=== PATIENT | female | born 1985 | race Caucasian/White ===

== ENCOUNTER 2023-04-16 14:04 | Emergency (ER) | payer OTHER ==
[2023-04-16 14:47] VITALS: PULSE 78; TEMP 98.1
[2023-04-16] MEDS ORDERED: ORPHENADRINE 30 MG/ML 2 ML VIAL IVP STA (14:50)
[2023-04-16] MEDS ORDERED: KETOROLAC 15 MG/ML 1 ML VIAL IVP STA (14:50)
[2023-04-16] MEDS ORDERED: DEXAMETHASONE SOD PHOSPHATE 10 MG/ML 1 ML VIAL IVP STA (14:50)
--- NOTE | 2023-04-16 15:13 | ED ---
Neck Injury/Pain HPI - General Chief Complaint: Neck Pain/Injury Stated Complaint: Neck pain, blurry vision Time Seen by Provider: 04/16/23 14:31 Source: patient, RN notes reviewed Mode of arrival: ambulatory Limitations: no limitations - History of Present Illness Initial Comments: This is a 37-year-old female who presents to the emergency department for neck pain. States that yesterday she went to bend over and pick something up, and developed severe pain to the base of her skull. She has since been in excruciating pain and is unable to turn her head whatsoever. The pain does not go down the neck or into any of the extremities. States that it remains at the base of the skull. Believes that she is starting to get blurry vision as well. MD Complaint: neck pain - Related Data Previous Rx's Medication Instructions Recorded HYDROcodone/APAP 5-325MG [Sp[place] 1 tab PO Q6HR PRN 3 Days #12 tab 04/16/23 5-325] methocarbamoL [Robaxin-750] 1,500 mg PO TID PRN #30 tab 04/16/23 predniSONE 50 mg PO DAILY 5 Days #5 tab 04/16/23 Allergies Allergy/AdvReac Type Severity Reaction Status Date / Time codeine Allergy Swelling Verified 04/16/23 14:27 Review of Systems ROS Statement: Those systems with pertinent positive or pertinent negative responses have been documented in the HPI. ROS Other: All systems not noted in ROS Statement are negative. Past Medical History Past Medical History: Seizure Disorder Past Surgical History: Orthopedic Surgery Smoking Status: Current every day smoker General Exam Limitations: no limitations General appearance: alert, in distress Head exam: Present: atraumatic, normocephalic, normal inspection, other (Distal most aspect of the occiput) Eye exam: Present: normal appearance, PERRL, EOMI. Absent: scleral icterus, conjunctival injection, periorbital swelling Neck exam: Present: normal inspection. Absent: tenderness, meningismus, full ROM (limited by pain), lymphadenopathy Respiratory exam: Present: normal lung sounds bilaterally. Absent: respiratory distress, wheezes, rales, rhonchi, stridor Cardiovascular Exam: Present: regular rate, normal rhythm, normal heart sounds. Absent: systolic murmur, diastolic murmur, rubs, gallop, clicks Neurological exam: Present: alert, oriented X3, CN II-XII intact Psychiatric exam: Present: normal affect, normal mood Skin exam: Present: warm, dry, intact, normal color. Absent: rash Course Vital Signs 04/16/23 04/16/23 14:24 16:03 Temperature 98.1 F 98.1 F Pulse Rate 78 78 Respiratory 20 18 Rate Blood Pressure 182/113 163/105 O2 Sat by Pulse 99 98 Oximetry Medical Decision Making - Medical Decision Making This is a 37 year old female who presents to the emergency department for neck pain. Was pt. sent in by a medical professional or institution? @ -No Did you speak to anyone other than the patient for history? @ -No Did you review nursing and triage notes? @ -Yes, and I agree, it is accurate with regards to the patient's symptoms. Were old charts reviewed? @ -No Differential Diagnosis? @ -Differential Neck Pain: Fracture, dislocation, contusion, strain, DDD, disc herniation, this is not meant to be an all-inclusive list. EKG interpreted by me (3pts min.)? @ -Not obtained X-rays interpreted by me (1pt min.)? @ -Not obtained CT interpreted by me (1pt min.)? @ -Computed tomography scan of the brain and c-spine obtained. My interpretation identifies no evidence of an acute intracranial hemorrhage, skull fracture, or cervical spine fracture. U/S interpreted by me (1pt. min.)? @ -Not obtained What testing was considered but not performed? (CT, X-rays, U/S, labs)? Why? @ -None What meds were considered but not given? Why? @ -None Did you discuss the management of the patient with other professionals? @ -No Did you reconcile home meds? @ -No Was smoking cessation discussed for >3mins.? @ -No Was critical care preformed (if so, how long)? @ -No Were there social determinants of health that impacted care today? How? (Homelessness, low income, unemployed, alcoholism, drug addiction, transportation, low edu. Level, literacy, decrease access to med. care, [facility], rehab)? @ -No Was there de-escalation of care discussed even if they declined? (Discuss DNR or withdrawal of care, Hospice)? @ -No What co-morbidities impacted this encounter? (DM, HTN, Smoking, COPD, CAD, Cancer, CVA, Hep., AIDS, mental health diagnosis, sleep apnea, morbid obesity)? @ -None Was patient admitted / discharged? @ -Discharged. Computed tomography scan of the brain and C-spine obtained revealing no acute process. She was initially treated with Toradol, Norflex, and Decadron without substantial improvement in symptoms. She was then given a dose of Dilaudid. After resting for a couple of hours, she did start to develop improvement. Dr. Rooney, ED attending, evaluated the patient at bedside as well. Symptoms are likely musculoskeletal in nature and may be related to a spasmodic torticollis or occipital neuralgia. After symptoms began to improve, she felt stable for discharge home. Rx for Prednisone and Robaxin provided with dosing instructions reviewed. She was also given a prescription for a short course of [place] to be taken sparingly when her pain is the most severe. Patient discharged home in stable condition. Undiagnosed new problem with uncertain prognosis? @ -None Drug Therapy requiring intensive monitoring for toxicity (Heparin, Nitro, Insulin, Cardizem)? @ -None Were any procedures done? @ -None Diagnosis/symptom? @ -Spasmodic torticollis, occipital neuralgia Acute, or Chronic, or Acute on Chronic? @ -Acute Uncomplicated (without systemic symptoms) or Complicated (systemic symptoms)? @ -Uncomplicated Side effects of treatment? @ -None Exacerbation, Progression, or Severe Exacerbation] @ -Not applicable Poses a threat to life or bodily function? @ -The pain may have an impact on her ability to function for the mean time. Return precautions reviewed in depth, the patient is instructed to return to the emergency department with any new, worsening, or concerning symptoms. Patient verbalized understanding. This case was discussed in detail with the attending ED physician, Dr. Rooney. Presentation, findings, and treatment plan discussed in detail as well. - Radiology Data Radiology results: report reviewed, image reviewed Disposition Clinical Impression: Occipital neuralgia, Spasmodic torticollis Disposition: HOME SELF-CARE Instructions (If sedation given, give patient instructions): Spasmodic Torticol lis (ED), Acute Headache (ED) Additional Instructions: Return to the emergency department with any new, worsening, or concerning symptoms. Take the prednisone daily for 5 days. You can take the Robaxin as 1-2 tablets up to 3-4 times daily for pain relief. Take the [place] sparingly when your pain is the most severe and be aware that both the Robaxin and Sp[place] may ma ke you drowsy. You can apply warm moist heat and try massaging the area. A list of local primary care providers is attached. You can contact some of the offices to become established for ongoing medical care. Prescriptions: HYDROcodone/APAP 5-325MG [[place] 5-325] 1 tab PO Q6HR PRN 3 Days #12 tab PRN Reason: Pain predniSONE 50 mg PO DAILY 5 Days #5 tab methocarbamoL [Robaxin-750] 1,500 mg PO TID PRN #30 tab PRN Reason: Pain Is patient prescribed a controlled substance at d/c from ED?: Yes When asked, does pt state using other controlled substances?: No If prescribed controlled substance>3 days was MAPS reviewed?: Prescribed <3 Days Referrals: None,Stated [Primary Care Provider] - 1-2 days Forms: Area PCPs Time of Disposition: 17:30
[2023-04-16] MEDS ORDERED: HYDROmorphone 1 MG/ML 1 ML SYRINGE IVP STA (15:58)
--- NOTE | 2023-04-16 16:12 | CT ---
EXAMINATION TYPE: CT brain ramseyine wo con DATE OF EXAM: 04/16/2023 COMPARISON: None HISTORY: Neck/base of skull pain after bending down today. Pt unable to move head or neck without taylor n. CT DLP: 1348.8 mGycm, Automated exposure control for dose reduction was used. CONTRAST: None CT of the brain is performed utilizing 3 mm thick sections through the posterior fossa and 3 mm thick sections through the remaining calvarium. Study is performed within 24 hours of arrival to the hospital. No abnormal hyperdensity is present to suggest an acute intracranial hemorrhage. No mass lesion is evident. No acute infarcts are evident. Ventricles and sulci are appropriate for the patient age. Paranasal sinuses and mastoid air cells within the [id number] are clear. IMPRESSIONS: 1. No acute intracranial process. CT cervical spine. COMPARISON: None CT of the cervical spine is performed in the axial plane at 2 mm thick sections. Reconstructed image s in the coronal, and sagittal plane are reviewed on the computer. No acute fractures are evident. Vertebral body alignment is normal. Disc heights are preserved. Vertebral body heights are preserved. No spinal canal stenosis is evident. No neural foraminal stenosis is evident. Follow-up MRI can be performed as clinically indicated. IMPRESSION: 1. No acute osseous abnormality cervical spine
[2023-04-16 16:46] VITALS: BP 163/105; RESP 18
[2023-04-16] MEDS ORDERED: traMADol 50 MG STARTER PACK 3 TAB BTL PO STA (17:27)
== END 2023-04-16 17:55 | disposition home or self-care (01) ==
LOC: EC 14:04
DX: M54.81 Occipital neuralgia (principal); G24.3 Spasmodic torticollis; F17.200 Nicotine dependence, unspecified, uncomplicated; Z88.5 Allergy status to narcotic agent
CPT/HCPCS: 72125; 70450; 99284; 96374; 96375 ×3; J1100; J2360; J1170; J1885